=== PATIENT | female | born 1980 | race Caucasian/White ===

== ENCOUNTER 2017-09-25 06:39 | Emergency (ER) | payer OTHER ==
[~2017-09-25] VITALS: Ht 152.4 cm; Wt 68.0 kg
--- NOTE | 2017-09-25 07:17 | ED GI/GU/ABDOMINAL COMPLAINT ---
History of Present Illness General Chief Complaint: Abdominal Pain/Flank Pain Stated Complaint: ABD PAIN Source: patient, old records Exam Limitations: no limitations Vital Signs & Intake/Output Vital Signs & Intake/Output Vital Signs Date Time Temp Pulse Resp B/P B/P Pulse O2 O2 Flow FiO2 Mean Ox Delivery Rate 09/25 1141 97.4 93 18 123/78 98 Room Air Room Air 09/25 1101 97.6 09/25 0850 97.6 72 16 99/55 99 Room Air 09/25 0654 97.9 102 18 125/89 97 Room Air Allergies Coded Allergies: levofloxacin (From LEVAQUIN) (ANAPHYLAXIS/RASH PER PT 09/25/17) morphine (HIVES PER PT 09/25/17) Reconcile Medications Hyoscyamine Sulfate (Levsin-Sl) 0.125 MG TAB.SUBL 1-2 TAB SL Q4P PRN abdominal cramps Mag Hydrox/Al Hydrox/Simeth (Maalox Maximum Strength Susp) 400 MG-400 MG-40 MG/5 ML ORAL.SUSP 5-10 ML PO Q6H PRN heartburn Metoclopramide HCl (Reglan) 10 MG TABLET 1 TAB PO 4 TIMES/DAY PRN n/v 30 minutes before meals and bedtime Ondansetron (Zofran Odt) 4 MG TAB.RAPDIS 1 TAB SL TID PRN nausea Pantoprazole Sodium (Protonix) 40 MG TABLET.DR 1 TAB PO DAILY gastritis Triage Note: PT FROM HOME C/O ABD PAIN SINCE MONDAY. PT HAS ABD PAIN LOCATED UNDER LEFT BREAST/FLANK PAIN. PT UNABLE TO TOLERATE ANYTHING PO THE PAST FEW HOURS. PT HAS 6X EPISODES OF N/V, 3X EPISODES DIARRHEA. PT STATES SHARP PAIN 10/10 RADIATING TO FLANK. Triage Nurses Notes Reviewed? yes LMP (ages 10-50): unknown ? N Is pt currently ? No Onset: Last week Duration: day(s):, continues in ED, getting worse, waxing and waning Timing: recent history Quality/Severity: aching, cramping, severe, vomiting Location: left upper quadrant Radiation: back Activities at Onset: rest Prior Abdominal Problems: similar symptoms Past Sexual History: Unobtainable at this time Modifying Factors: Worsens With: eating. Associated Symptoms: abdominal pain, heartburn, loss of appetite, nausea/ vomiting HPI: 4 days prior to admission patient reports going out with friends drinking wine having appetizers. 3 days prior to admission she complains of heartburn nausea vomiting decreased appetite. Several hours prior to admission symptoms continued and worsened. She denies fever chills diarrhea chest pain cough shortness breath headache dysuria rash bleeding. Past History Travel History Traveled to [place] past 21 day No Medical History Any Pertinent Medical History? see below for history Neurological: NONE EENT: NONE Cardiovascular: NONE Respiratory: NONE Gastrointestinal: ULCER Hepatic: NONE Renal: NONE Musculoskeletal: NONE Psychiatric: NONE Endocrine: NONE Surgical History Surgical History: non-contributory Psychosocial History What is your primary language Egyptian Tobacco Use: Current Not Daily ETOH Use: occasional use Illicit Drug Use: denies illicit drug use Family History Hx Contributory? No Review of Systems Review of Systems Constitutional: Reports: see HPI, malaise. EENTM: Reports: no symptoms. Respiratory: Reports: no symptoms. Cardiovascular: Reports: no symptoms. GI: Reports: see HPI, abdominal pain, nausea, vomiting. Genitourinary: Reports: no symptoms. Musculoskeletal: Reports: no symptoms. Skin: Reports: no symptoms. Neurological/Psychological: Reports: no symptoms. Hematologic/Endocrine: Reports: no symptoms. Immunologic/Allergic: Reports: no symptoms. All Other Systems: Reviewed and Negative Physical Exam Physical Exam General Appearance: well developed/nourished, alert, awake, anxious, moderate distress, obese Head: atraumatic, normal appearance Eyes: Bilateral: normal appearance, PERRL, EOMI, normal inspection. Ears, Nose, Throat, Mouth: hearing grossly normal, Dry mucus membranes Neck: normal inspection, supple, full range of motion, normal alignment Respiratory: normal breath sounds, chest non-tender, no respiratory distress, quiet respiration, lungs clear Cardiovascular: regular rate/rhythm, normal peripheral pulses, norml femoral pulses equa Peripheral Pulses: 4+ carotid (R), 4+ carotid (L) Gastrointestinal: normal bowel sounds, soft, no organomegaly, tenderness ( epigastric left upper quadrant) Back: normal inspection, normal range of motion, no vertebral tenderness Extremities: normal range of motion, no ligament instability Neurologic/Psych: no motor/sensory deficits, awake, alert, oriented x 3, normal gait, normal mood/affect, 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 No Sepsis Present: No Sepsis Focused Exam Completed? No Progress Differential Diagnosis: bowel obstruction, gastritis, peptic ulcer, PUD/GERD, UTI/pyelo Plan of Care: Orders Procedure Date/time Status URINALYSIS 09/26 715 Complete TROPONIN LEVEL 09/25 713 Complete MAGNESIUM 09/25 713 Complete LIPASE 09/25 713 Complete HUMAN BETA HCG SCREEN 09/25 713 Complete COMPREHENSIVE METABOLIC PANEL 09/25 713 Complete CBC WITHOUT DIFFERENTIAL 09/25 713 Complete EKG 09/25 0657 Active Laboratory Tests 09/25/17 0957: Urine Color YEL, Urine Clarity CLEAR, Urine pH 6.0, Ur Specific [place] 1.020, Urine Protein NEG, Urine Ketones NEG, Urine Nitrite NEG, Urine Bilirubin NEG, Urine Urobilinogen 0.2, Ur Leukocyte Esterase NEG, Ur Microscopic EXAM NOT REQUIRED, Urine Hemoglobin NEG, Urine Glucose NEG 09/25/17 0730: Anion Gap 12, Estimated GFR > 60, BUN/Creatinine Ratio 13.8, Glucose 97, Calcium 9.4, Magnesium 2.0, Total Bilirubin 0.5, AST 19, ALT 31, Alkaline Phosphatase 65 , Troponin I < 0.01, Total Protein 7.2, Albumin 4.3, Globulin 2.9, Albumin/ Globulin Ratio 1.5, Lipase 53, Total Beta HCG NEGATIVE, CBC w Diff NO MAN DIFF REQ, RBC 4.72, MCV 89.4, MCH 30.7, MCHC 34.3, RDW 13.6, MPV 9.9, Gran % 70.9, Lymphocytes % 22.0, Monocytes % 4.5, Eosinophils % 1.9, Basophils % 0.7, Absolute Granulocytes 6.3, Absolute Lymphocytes 1.9, Absolute Monocytes 0.4, Absolute Eosinophils 0.2, Absolute Basophils 0.1 09/25/17 0716: Troponin I Cancelled Diagnostic Imaging: Viewed by Me: CT Scan. Discussed w/RAD: CT Scan. Radiology Impression: No acute findings to correlate with the clinical history. No evidence of perforation. Cholecystectomy. Appendectomy. 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 Departure Forms: Customer Survey General Discharge Information Prescriptions: Current Visit Scripts Ondansetron (Zofran Odt) 1 TAB SL TID PRN nausea #10 TAB Metoclopramide HCl (Reglan) 1 TAB PO 4 TIMES/DAY PRN n/v #30 TAB 30 minutes before meals and bedtime Pantoprazole Sodium (Protonix) 1 TAB PO DAILY #30 TAB Ref 1 Hyoscyamine Sulfate (Levsin-Sl) 1-2 TAB SL Q4P PRN abdominal cramps #30 TAB Mag Hydrox/Al Hydrox/Simeth (Maalox Maximum Strength Susp) 5-10 ML PO Q6H PRN heartburn #240 ML Ref 1
[2017-09-25 07:49] LABS: ABSOLUTE BASOPHIL COUNT 0.1 /CUMM (0.0-0.2); ABSOLUTE EOSINOPHIL COUNT 0.2 /CUMM (0.0-0.7); ABSOLUTE GRANULOCYTE CT 6.3 /CUMM (1.4-6.5); ABSOLUTE LYMPH COUNT 1.9 /CUMM (1.2-3.4); ABSOLUTE MONOCYTE COUNT 0.4 /CUMM (0.10-0.60); BASOPHIL % 0.7 % (0.0-2.0); EOSINOPHIL % 1.9 % (0-5); GRANULOCYTE % 70.9 % (42.2-75.2); HEMATOCRIT 42.2 % (37-47); MEAN CORPUSCULAR HGB 30.7 PG (27.0-31.0); MEAN CORPUSCULAR HGB CONC 34.3 G/DL (33.0-37.0); MEAN CORPUSCULAR VOLUME 89.4 FL (81.0-99.0); MEAN PLATELET VOLUME 9.9 FL (7.4-10.4); PLATELET COUNT 204 /CUMM (130-400); RBC DISTRIBUTION WIDTH 13.6 % (11.5-14.5); RED BLOOD CELL CT 4.72 /CUMM (4.20-5.40); WHITE BLOOD CELL COUNT 8.8 /CUMM (4.8-10.8)
--- NOTE | 2017-09-25 09:59 | CT SCAN REPORT ---
EXAMINATION: CT ABDOMEN AND PELVIS WITH CONTRAST CLINICAL INFORMATION: Left upper quadrant and epigastric abdominal tenderness, nausea and vomiting. History of ulcer. COMPARISON: None TECHNIQUE: Multidetector volumetric imaging was performed of the abdomen and pelvis following IV administration of 95 mL of Optiray 320 intravenous contrast. Sagittal and coronal reformatted images were obtained on the technologist's workstation. DLP: 591 mGy-cm FINDINGS: LUNG BASES: 3.2 cm thin-walled blebs/cyst at the right lung base. LIVER, GALLBLADDER, AND BILIARY TREE: The liver is normal in size, shape, and attenuation. No focal hepatic lesion or biliary ductal dilatation is present. Cholecystectomy. PANCREAS: Unremarkable. SPLEEN: Unremarkable. ADRENAL GLANDS: Unremarkable. KIDNEYS AND URETERS: The kidneys are normal in size, shape, and attenuation. No hydronephrosis, hydroureter, or calculi seen. No perinephric stranding. BLADDER: Unremarkable. There may be a small urethral diverticulum measuring 1.4 cm. GASTROINTESTINAL TRACT: The stomach is decompressed but otherwise unremarkable. No focal gastric wall thickening or surrounding inflammatory change. No discrete evidence of perforation. The small bowel is normal in caliber. The appendix has been removed. The large bowel is unremarkable. ABDOMINAL WALL: No significant hernia is appreciated. LYMPH NODES: Normal. VASCULAR: Unremarkable. PELVIC VISCERA: The uterus and adnexa are unremarkable. OSSEOUS STRUCTURES: Unremarkable. IMPRESSION: No acute findings to correlate with the clinical history. No evidence of perforation. Cholecystectomy. Appendectomy.
[2017-09-25] MEDS ORDERED: LEVSIN-SL0.125 MG SL (10:50)
[2017-09-25] MEDS ORDERED: REGLAN10 M1 PO (10:50)
[2017-09-25] MEDS ORDERED: ZOFRAN ODT4 M1 SL (10:50)
[2017-09-25] MEDS ORDERED: PROTONIX40 M3 PO (10:50)
[2017-09-25] MEDS ORDERED: MAALOX MAXIMUM355 ML PO (10:50)
[2017-09-25 11:41] VITALS: BP 123/78
== END 2017-09-25 11:47 ==
LOC: ERH 06:39
PROVIDERS: Emergency Medicine
DX: K29.70 Gastritis, unspecified, without bleeding (principal); R11.2 Nausea with vomiting, unspecified; R10.12 Left upper quadrant pain
CPT/HCPCS: 74177; 81003; 93005; 93010; 96361; 96374; 96375; J0131; J1200; J2405; J2765